=== PATIENT | female | born 1960 | race Asian ===

== ENCOUNTER 2017-04-02 08:09 | Outpatient (CLI) | payer OTHER ==
[2017-04-02 09:40] LABS: BASOPHILS % (AUTO) 0.3 % (0.0-2.0); EOSINOPHILS # (AUTO) 0.3 K/uL (0.0-0.4); EOSINOPHILS % (AUTO) 4.8 % (0.0-4.0); HEMATOCRIT 38.3 % (36-48); HEMOGLOBIN 12.6 g/dL (12.0-16.0); LYMPHOCYTES # (AUTO) 2.6 K/uL (1.0-5.5); LYMPHOCYTES % (AUTO) 42.5 % (20.5-51.5); MEAN CORPUSCULAR HEMOGLOBIN 28 pg (27-31); MEAN CORPUSCULAR HGB CONC 33 % (32-36); MEAN CORPUSCULAR VOLUME 84 fL (79.0-98.0); MONOCYTES # (AUTO) 0.5 K/uL (0.0-1.0); NEUTROPHILS # (AUTO) 2.7 K/uL (1.8-7.7); NEUTROPHILS % (AUTO) 44.4 % (40.0-70.0); PLATELET COUNT (AUTO) 261 K/uL (130-430); RED BLOOD CELL COUNT(AUTO) 4.58 MIL/uL (4.2-6.2); RED CELL DISTRIBUTION WIDTH 12.2 % (9.0-15.0); WHITE BLOOD COUNT (AUTO) 6.1 K/uL (4.8-10.8)
[2017-04-02 09:45] LABS: BILIRUBIN,URINE NEGATIVE (NEGATIVE); BLOOD, URINE NEGATIVE (NEGATIVE); CLARITY/URINE CLEAR (CLEAR); COLOR,URINE YELLOW (YELLOW); GLUCOSE,URINE NEGATIVE (NEGATIVE); KETONES,URINE NEGATIVE (NEGATIVE); LEUKOCYTE ESTERASE ,URINE NEGATIVE (NEGATIVE); NITRITE, URINE NEGATIVE (NEGATIVE); PH,URINE 5.5 (5.0-8.0); PROTEIN URINE NEGATIVE (NEGATIVE); UROBILINOGEN,URINE 0.2 (0.2-1.0)
[2017-04-02 09:56] LABS: FREE T4 (FREE THYROXINE) 0.9 ng/dl (0.8-1.5)
[2017-04-02 10:04] LABS: ALANINE AMINOTRANSFERASE 30 U/L (12-78); ALBUMIN 3.8 g/dL (3.4-4.8); ASPARTATE AMINOTRANSFERASE 29 U/L (10-37); CALCIUM 9.5 mg/dL (8.4-11.0); CHLORIDE 107 mmol/L (98-107); CHOLESTEROL 202 mg/dL (<200); CREATININE 0.57 mg/dL (0.55-1.30); GFR AFRICAN AMERICAN 142 mL/min (>90); GLUCOSE 105 mg/dL (70-99); HDL CHOLESTEROL 73 mg/dL (>55); LDL CHOLESTEROL 116 mg/dL (<100); POTASSIUM 4.4 mmol/L (3.5-5.1); SODIUM SERUM 141 mmol/L (136-145); THYROID STIMULATING HORMONE 1.47 uIu/mL (0.34-4.82); TOTAL BILIRUBIN 0.4 mg/dL (0.0-1.0); TRIGLYCERIDES 128 mg/dL (30-150); UREA NITROGEN, BLOOD 13 mg/dL (8-21)
[2017-04-02 10:05] LABS: ANION GAP < 3 (5-15)
== END 2017-04-02 20:40 | disposition home or self-care (01) ==
LOC: SLB 08:09
PROVIDERS: ATTEND Family Medicine
DX: Z00.01 Encounter for general adult medical examination with abnormal findings (principal); R79.89 Other specified abnormal findings of blood chemistry
CPT/HCPCS: 36415; 80053; 80061; 81003; 82272; 84439; 84443-TC; 85025

== ENCOUNTER 2018-02-15 07:47 | Outpatient (CLI) | payer OTHER ==
[2018-02-15 10:03] LABS: ALBUMIN 3.9 g/dL (3.4-4.8); CALCIUM 9.4 mg/dL (8.4-11.0); CREATININE 0.52 mg/dL (0.55-1.30); POTASSIUM 4.5 mmol/L (3.5-5.1); THYROID STIMULATING HORMONE 1.21 uIu/mL (0.34-4.82); TOTAL BILIRUBIN 0.5 mg/dL (0.0-1.0)
[2018-02-15 10:05] LABS: BASOPHILS % (AUTO) 0.7 % (0.0-2.0); EOSINOPHILS # (AUTO) 0.2 K/uL (0.0-0.4); EOSINOPHILS % (AUTO) 3.8 % (0.0-4.0); HEMATOCRIT 40.9 % (36-48); HEMOGLOBIN 13.5 g/dL (12.0-16.0); LYMPHOCYTES # (AUTO) 2.2 K/uL (1.0-5.5); LYMPHOCYTES % (AUTO) 37.5 % (20.5-51.5); MEAN CORPUSCULAR HEMOGLOBIN 28 pg (27-31); MEAN CORPUSCULAR HGB CONC 33 % (32-36); MEAN CORPUSCULAR VOLUME 85 fL (79.0-98.0); MONOCYTES # (AUTO) 0.3 K/uL (0.0-1.0); MONOCYTES % (AUTO) 4.9 % (1.7-9.3); NEUTROPHILS # (AUTO) 3.2 K/uL (1.8-7.7); NEUTROPHILS % (AUTO) 53.1 % (40.0-70.0); PLATELET COUNT (AUTO) 303 K/uL (130-430); RED BLOOD CELL COUNT(AUTO) 4.82 MIL/uL (4.2-6.2); WHITE BLOOD COUNT (AUTO) 5.9 K/uL (4.8-10.8)
[2018-02-16 11:01] LABS: RA LATEX TURBID <10.0 IU/mL (0.0-13.9)
[2018-02-16 19:34] LABS: ANTI NUCLEAR AB WITH REFLEX Negative (Negative)
== END 2018-02-15 20:36 | disposition home or self-care (01) ==
LOC: SLB 07:47
PROVIDERS: ATTEND Family Medicine
DX: M79.662 Pain in left lower leg (principal); M79.661 Pain in right lower leg; R79.89 Other specified abnormal findings of blood chemistry
CPT/HCPCS: 36415; 80053; 83036; 84443-TC; 85025; 86038; 86431

== ENCOUNTER → 2018-09-07 | Outpatient (CLI) | payer BC, OTHER ==
[2018-09-07 08:44] LABS: BASOPHILS % (AUTO) 0.4 % (0.0-2.0); EOSINOPHILS # (AUTO) 0.2 K/uL (0.0-0.4); EOSINOPHILS % (AUTO) 3.2 % (0.0-4.0); HEMOGLOBIN 13.3 g/dL (12.0-16.0); LYMPHOCYTES # (AUTO) 2.4 K/uL (1.0-5.5); LYMPHOCYTES % (AUTO) 42.7 % (20.5-51.5); MEAN CORPUSCULAR HEMOGLOBIN 27 pg (27-31); MEAN CORPUSCULAR HGB CONC 32 % (32-36); MEAN CORPUSCULAR VOLUME 85 fL (79.0-98.0); MONOCYTES # (AUTO) 0.3 K/uL (0.0-1.0); MONOCYTES % (AUTO) 4.6 % (1.7-9.3); NEUTROPHILS # (AUTO) 2.7 K/uL (1.8-7.7); NEUTROPHILS % (AUTO) 49.1 % (40.0-70.0); PLATELET COUNT (AUTO) 316 K/uL (130-430); RED BLOOD CELL COUNT(AUTO) 4.97 MIL/uL (4.2-6.2); RED CELL DISTRIBUTION WIDTH 11.9 % (9.0-15.0); WHITE BLOOD COUNT (AUTO) 5.6 K/uL (4.8-10.8)
[2018-09-07 08:49] LABS: ALBUMIN 3.9 g/dL (3.4-4.8); CREATININE 0.57 mg/dL (0.55-1.30); FREE T4 (FREE THYROXINE) 0.6 ng/dL (0.6-1.6); THYROID STIMULATING HORMONE 1.43 uIu/mL (0.34-4.82); TOTAL BILIRUBIN 0.4 mg/dL (0.0-1.0)
[2018-09-07 08:56] LABS: BILIRUBIN,URINE NEGATIVE (NEGATIVE); BLOOD, URINE NEGATIVE (NEGATIVE); CLARITY/URINE CLEAR (CLEAR); COLOR,URINE YELLOW (YELLOW); GLUCOSE,URINE NEGATIVE (NEGATIVE); KETONES,URINE NEGATIVE (NEGATIVE); LEUKOCYTE ESTERASE ,URINE 1+ (NEGATIVE); NITRITE, URINE NEGATIVE (NEGATIVE); PROTEIN URINE NEGATIVE (NEGATIVE); UROBILINOGEN,URINE 0.2 (0.2-1.0)
[2018-09-07 10:45] LABS: BACTERIA,URINE FEW /HPF (None Seen); MUCUS,URINE None Seen /LPF (None Seen); RBC,URINE 0-3 /HPF (0-3); YEAST,URINE None Seen /HPF (None Seen)
== END | disposition home or self-care (01) ==
LOC: SLB 07:46
PROVIDERS: ATTEND Family Medicine
DX: Z12.11 Encounter for screening for malignant neoplasm of colon (principal)
CPT/HCPCS: 36415; 80053; 80061; 81000-TC; 82272; 83036; 84439; 84443-TC; 85025

== ENCOUNTER 2018-10-04 14:37 | Outpatient (CLI) | payer OTHER | END 2018-10-04 19:32 | disposition home or self-care (01) | LOC: SMA 14:37 | PROVIDERS: ATTEND Family Medicine | DX: Z12.31 Encounter for screening mammogram for malignant neoplasm of breast (principal); M47.816 Spondylosis without myelopathy or radiculopathy, lumbar region; M41.86 Other forms of scoliosis, lumbar region | CPT/HCPCS: 72110; 77067 ==

== ENCOUNTER 2018-12-10 08:38 | Emergency (ER) | payer OTHER ==
[~2018-12-10] VITALS: Ht 167.6 cm; Wt 65.8 kg
[2018-12-10 08:45] VITALS: BP_SYST 137
--- NOTE | 2018-12-10 08:51 | NUR ---
Patient to ER bed 8 to gown for evaluation. Side rails up. Report given to Fly SABILLON.
--- NOTE | 2018-12-10 08:53 | NUR ---
Patient is awake, alert, and oriented x4. Patient states she has had a wheezing productive cough since [place]. Lung sounds are clear.
--- NOTE | 2018-12-10 08:53 | NUR ---
ER Dr. Martinez at bedside examining patient.
[2018-12-10 09:10] VITALS: BP_SYST 128
--- NOTE | 2018-12-10 09:10 | NUR ---
Patient given written and verbal discharge instructions and verbalizes understanding. ER MD discussed with patient the results and treatment provided. Patient in stable condition. ID arm band removed. Rx of promethazine w/codeine, albuterol given. Patient educated on pain management and to follow up with PMD. Pain Scale 0/10. Opportunity for questions provided and answered. Medication side effect fact sheet provided.
== END 2018-12-10 09:10 | disposition home or self-care (01) ==
LOC: SED 08:38
DX: N39.0 Urinary tract infection, site not specified (principal)
CPT/HCPCS: 99283